=== PATIENT | male | born 1945 | race Caucasian/White ===

== ENCOUNTER → 2017-07-02 | Outpatient (CLI) | payer MEDICARE, BC ==
[~2017-07-02] MED LIST: ASPIRIN81 M1 PO; CITALOPRAM20 MG PO; CLARITIN10 MG PO; CLOPIDOGREL75 MG PO; FUROSEMIDE20 M1 PO; HYDR12.5C PO; HYDROCODONE BIT1 T11 PO; IMDUR ER30 MG PO; LEVOTHYROXINE50 MCG PO; LIDEX 0.05% CRE15 GM T; LISINOPRIL/HCTZ1 TA4 PO; LISINOPRIL2.5 MG PO; LISINOPRIL20 MG PO; LOPRESSOR25 MG PO; PREDNISONE20 M1 PO; SALSALATE500 MG PO; SALSALATE750 MG PO; SIMVASTATIN40 MG PO; VITAMIN D32000 UNI1 PO
== END | disposition home or self-care (01) ==
LOC: CARD 02:38
DX: I10 Essential (primary) hypertension (principal); R07.9 Chest pain, unspecified; R06.02 Shortness of breath; I25.10 Atherosclerotic heart disease of native coronary artery without angina pectoris

== ENCOUNTER → 2017-12-16 | Outpatient (CLI) | payer MEDICARE ==
[2017-12-17 15:08] LABS: ACID FAST SPEC PROCESSING Concentration (.)
== END | disposition home or self-care (01) ==
LOC: LAB 10:08
PROVIDERS: Family Medicine
DX: J06.9 Acute upper respiratory infection, unspecified (principal); R04.2 Hemoptysis; I26.99 Other pulmonary embolism without acute cor pulmonale; I10 Essential (primary) hypertension; Z87.891 Personal history of nicotine dependence

== ENCOUNTER → 2022-03-01 | Outpatient (CLI) | payer MEDICARE | END | disposition home or self-care (01) | LOC: US 00:04 | PROVIDERS: ATTEND Internal Medicine Nephrology | DX: N13.30 Unspecified hydronephrosis (principal); N20.0 Calculus of kidney; N32.89 Other specified disorders of bladder; N32.3 Diverticulum of bladder; M79.89 Other specified soft tissue disorders; R60.0 Localized edema ==

== ENCOUNTER → 2022-03-15 | Outpatient (CLI) | payer MEDICARE ==
[2022-03-15 11:43] LABS: CREATININE 1.57 mg/dL (0.70-1.30); POTASSIUM 4.2 mmol/L (3.5-5.1); TOTAL PROTEIN 7.6 gm/dL (6.4-8.2)
== END | disposition home or self-care (01) ==
LOC: LAB 01:43
PROVIDERS: ATTEND Internal Medicine Nephrology
DX: E87.5 Hyperkalemia (principal)